=== PATIENT | female | born 1965 | race Hispanic/Latino ===

== ENCOUNTER 2018-06-14 06:43 | Day surgery (SDC) | payer BC ==
[2018-06-10 10:49] VITALS: BP 138/78
[2018-06-10 10:56] LABS: BASOPHILS % (AUTO) 0.7 % (0.0-5.0); EOSINOPHILS % (AUTO) 3.6 % (0.0-8.0); HEMATOCRIT 39.6 % (36-48); LYMPHOCYTES % (AUTO) 31.2 % (21.0-51.0); MEAN CORPUSCULAR HEMOGLOBIN 26.4 pg (27.0-33.0); MEAN CORPUSCULAR HGB CONC 32.2 g/dL (32.0-36.0); MEAN CORPUSCULAR VOLUME 82.2 fL (79-99); MONOCYTES % (AUTO) 9.6 % (3.0-13.0); NEUTROPHILS % (AUTO) 54.9 % (40.0-77.0); NUCLEATED RED BLOOD CELLS 0.1 % (0.0-0.19); PLATELET COUNT (AUTO) 350 K/uL (130-400); RED BLOOD CELL COUNT(AUTO) 4.82 MIL/uL (4.00-5.50); RED CELL DISTRIBUTION WIDTH 15.5 % (11.0-15.5); WHITE BLOOD COUNT (AUTO) 6.4 K/uL (4.8-10.8)
[2018-06-10 11:02] LABS: CREATININE 0.9 mg/dL (0.5-1.5); POTASSIUM 4.2 mmol/L (3.5-5.1)
--- NOTE | 2018-06-10 11:25 | NUR ---
PT REPORTS SHE TAKES ABT DUE TO DOCTOR GEORGI RX FOR PREVENTIVE MEASURES BLADDER INFECTIONS
[2018-06-10 12:02] LABS: INR 2.85 (0.85-1.15); PARTIAL THROMBOPLASTIN TIME 44.4 SEC (26.3-35.5); PROTHROMBIN TIME 29.3 SEC (9.6-11.6)
--- NOTE | 2018-06-11 12:02 | NUR ---
NURSING COMMUNICATION: INFORMED DR. FELIX OF PT ELEVATED PT/INR LEVELS, NEW ORDERS RECEIVED TO RE-DRAW PT/INR LEVEL MORNING OF PROCEDURE. INFORMED DOCTOR THAT PT HAS BEEN INSTRUCTED TO HOLD COUMADIN FOR 3 DAYS PRIOR TO PROCEDURE DATE.
[~2018-06-14] VITALS: Ht 154.9 cm; Wt 68.1 kg
[2018-06-14] VITALS (20 sets, daily range): BP systolic 124–143; BP diastolic 71–85
[~2018-06-14 06:43] MED LIST: AMLO1CAP5 PO; ASPI-555 PO; CEPH250C3 PO; ROSU40 PO; WARF1TAB46 PO
[2018-06-14] MEDS ORDERED: LACTATED RINGERS 1000ML 1,000 ML IV ONE (07:32)
[2018-06-14] MEDS ORDERED: PROPOFOL 10 MG/ML 20ML VIAL IV ONE ×2 (07:34→07:45)
[2018-06-14] MEDS ORDERED: MIDAZOLAM HCL 1 MG/ML 2ML VIAL ONE ×2 (07:34→07:45)
[2018-06-14] MEDS ORDERED: FENTANYL CITRATE PF 50 MCG/1 ML 2ML VIAL ONE ×3 (07:41→08:31)
[2018-06-14] MEDS ORDERED: DEXAMETHASONE SOD PHOSPHATE 10MG/ML 1ML VIAL ONE (07:44)
[2018-06-14] MEDS ORDERED: LIDOCAINE PF 2% 5ML ABBOJECT ONE (07:44)
[2018-06-14] MEDS ORDERED: ONDANSETRON HCL 4 MG/2 ML VIAL ONE (07:45)
[2018-06-14] MEDS ORDERED: VASOPRESSIN 20 UNITS/ML 1ML VIAL ONE (07:49)
[2018-06-14] MEDS ORDERED: STRONG IODINE SOLUTION 30ML BOTTLE ONE (07:49)
[2018-06-14] MEDS ORDERED: ROCURONIUM 10MG/1ML SYR 10 MG/ML ML ONE (07:53)
[2018-06-14 08:06] LABS: INR 1.44 (0.85-1.15); PARTIAL THROMBOPLASTIN TIME 33.6 SEC (26.3-35.5)
[2018-06-14] MEDS ORDERED: MEPERIDINE-PF 25 MG/ML SYG ONE ×2 (09:13→09:23)
--- NOTE | 2018-06-14 09:25 | NUR ---
NUMBNESS pt states had a stroke in the past no deficits except numbness to left lower extremity has decreased sensation left upper and lower Addendum: 06/14/18 at 0930 by CARLOS ANN RN RN Amended: Links added.
[2018-06-14] MEDS ORDERED: METO50TA18 PO (09:39)
[2018-06-14] MEDS ORDERED: ENOX40DI8 SQ (09:39)
--- NOTE | 2018-06-14 09:58 | NUR ---
RECEIVED AWAKE ALERT , NO COMPLAINT,MARIAH PAD IN PLACE WITH NO BLEEDING ,IN [employer]IRITS ,CALL [facility] IN REACH
--- NOTE | 2018-06-14 10:20 | NUR ---
OFFICE OF DR FELIX CALLED ,SPOKE TO HECTOR MAHAJAN IN REGARDS OF COUMADIN ,WILL GET BACK WITH PT AFTER SHE SPEAKS TO DR Dennis
--- NOTE | 2018-06-14 10:22 | NUR ---
HAD TEXT DR FELIX I,,RETURNS CALL ,OK TO CONTINUE WITH COUMADIN ORDERED ON HOME MEDICATION RECONCILIATION,,,PT AWARE
--- NOTE | 2018-06-14 10:55 | NUR ---
TO CAR VIA W/C, NO DISCOMFORT
== END 2018-06-14 10:55 | disposition home or self-care (01) ==
LOC: DAH 06:43
PROVIDERS: ATTEND Specialist
DX: N87.0 Mild cervical dysplasia (principal); Z79.01 Long term (current) use of anticoagulants; Z79.899 Other long term (current) drug therapy; Z86.73 Personal history of transient ischemic attack (TIA), and cerebral infarction without residual deficits; I10 Essential (primary) hypertension
CPT/HCPCS: 36415 ×2; 57520; 80048; 85025; 85610 ×2; 85730 ×2; 86850; 86900; 86901; 88307; A4351; A4510; A4600; J1100; J2001; J2175 ×2; J2250 ×2; J2405; J2704; J3010 ×2; J3490; J7120 ×2